=== PATIENT | male | born 1990 | race Caucasian/White ===

== ENCOUNTER 2017-06-17 18:39 | Emergency (ER) | payer OTHER ==
[~2017-06-17] VITALS: Ht 167.6 cm; Wt 83.3 kg
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
[2017-06-17] MEDS ORDERED: LIDOCAINE 2% 20 ML VIAL. ONE (18:54)
[2017-06-17] MEDS ORDERED: BUPIVACAINE MPF 0.5% 30 ML VIAL. SQ ONE (19:00)
[2017-06-17] MEDS ORDERED: DIPHTH,PERTUSS(ACELL),TET TOX 0.5 ML DISP.SYRIN. VAX IM ONE (19:00)
[2017-06-17] MEDS ORDERED: LIDOCAINE 2%/EPI 1:100,000 20 ML VIAL. IJ ONE (19:00)
[2017-06-17] MEDS ORDERED: LIDOCAINE 2% 20 ML VIAL. IJ ONE (19:15)
[2017-06-17 20:03] VITALS: BP 138/74
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
--- NOTE | 2017-06-18 08:05 | RAD ---
Left shoulder, 2 views, 06/17/2017: Dictated in conjunction with the chest radiograph. See that report.
== END 2017-06-17 20:43 | disposition home or self-care (01) ==
LOC: ER 18:39
DX: S01.01XA Laceration without foreign body of scalp, initial encounter (principal); S80.01XA Contusion of right knee, initial encounter; S20.219A Contusion of unspecified front wall of thorax, initial encounter; S40.012A Contusion of left shoulder, initial encounter; Z88.0 Allergy status to penicillin; Z88.2 Allergy status to sulfonamides; W22.03XA Walked into furniture, initial encounter; Y93.89 Activity, other specified; Y99.8 Other external cause status; Y92.89 Other specified places as the place of occurrence of the external cause
CPT/HCPCS: 12002; 70450; 71046; 72125; 73030; 90471; 90715; 99284; J3490; J2001